=== PATIENT | female | born 1995 | race Caucasian/White ===

== ENCOUNTER 2024-07-10 21:04 | Emergency (ER) | payer OTHER, SELFPAY ==
[2024-07-10 21:06] VITALS: BP 122/78; PULSE 62; RESP 18; TEMP 36.6; O2SAT 98; BMI 23.3
--- NOTE | 2024-07-11 01:14 | PC.NURSE ---
Pt a&ox4, no signs of distress. Pt states I feel great Pts father who is a physician is at bedside Pt reports pet was bitten by a wild animal and pt touched bite area and feels like she touched the saliva of the possibly infected wild animal and then placed her fingers in her mouth Plan of care ongoing.
--- NOTE | 2024-07-11 01:47 | ED_ITS ---
HPI - General Adult General Chief complaint: General Medical Stated complaint: ?Rabies exposure Time Seen by Provider: 07/11/24 01:29 Source: patient, RN notes reviewed and old records reviewed Mode of arrival: ambulatory Limitations: no limitations History of Present Illness ED Provider: Gilberto HPI narrative: 20-year-old female presents for evaluation of a possible rabies exposure. Patient reports that her dog was attacked by a wild animal this morning. She reports that she witnessed the attack but could not identify the animal that attacked her dog The patient's dog was bit on the neck/chin area. The dog was brought to the [facility] who confirmed the dog was not fact bitten in the dog received rabies booster. The patient is concerned that while she was evaluating her dog she touch saliva from the wild animal and then touched her own face around her mouth. The patient also reports that she frequently bites her nails and cuticles in his concerned she may have been exposed to rabies Related Data Allergies Allergy/AdvReac Type Severity Reaction Status Date / Time No Known Allergies Allergy Verified 07/10/24 21:10 [No Known Allergies*] Review of Systems Review of Systems: Yes all other systems are reviewed and are negative PMFSH Social History Social History Smoked in Last 30 Days: No Use of substances other than those prescribed or required for medical reasons: No Advance Directives: No Advance Directives Information Provided: Yes Do you have a plan to hurt others: No Plan Physical Exam ED Vital Signs: Vital Signs - 24 hr 07/10/24 21:06 Temperature 97.8 F Pulse Rate 62 Respiratory Rate 18 Blood Pressure 122/78 Pulse Oximetry 98 Oxygen Delivery Method Room Air BMI result Body Mass Index 23.3 Const General: healthy appearing, comfortable, no acute distress, alert and awake Nutritional Appearance: well nourished Orientation/consciousness: patient oriented x3 HENMT Head: Yes normocephalic and Yes atraumatic Eyes Eyelids: Yes eyelids normal Conjunctivae: conjunctivae normal Sclerae: sclerae normal Corneas: corneas normal Pupils: Equal, round and reactive pupils present EOM: EOMs intact bilaterally Neck Neck: Yes full ROM Resp Effort & Inspection: normal respiratory effort, able to speak in complete sentences and not labored Skin General skin exam: elasticity normal Neuro General: patient oriented x3 Cranial nerves: Yes Equal, round and reactive pupils present and Yes Bilaterally intact EOM present Cognition (Neuro): normal cognition Extrem Other: Moving all extremities well without any obvious deformities Medical Decision Making Medical Decision Making MDM Narrative: 28-year-old female presents for evaluation of a possible rabies exposure. It is unclear what animal attacked her dog. Given that the patient herself was not actually bit in his an exceedingly low likelihood for rabies exposure. I discussed risks and benefits of rabies vaccination with the patient. She would like to be treated with a rabies vaccine series which was ultimately ordered. Differential Diagnosis Differential Diagnoses: The differential diagnosis associated with the presentation includes Rabies exposure And will bite Animal bite Discharge Plan Discharge Clinical Impression: Rabies exposure Patient Disposition: Home, Self-Care Instructions: Rabies Vaccine (By injection), Rabies Immune Globulin (By injection) Additional Instructions: Rabies follow up with the [facility]: Upon discharge from the ED today, you will be contacted by the Infusion Center to schedule your follow up Rabies vaccines. You will need a total of 3 more injections. If for some reason you do not receive a call, please call the Infusion Center directly at [phone]. Follow up with your primary care provider after completion of the vaccine to have a titer drawn to ensure the v accines effectiveness. Print Language: Estonian
--- NOTE | 2024-07-11 02:37 | PC.NURSE ---
Immune Globulin not in Pyxis or on any other unit. This RN called and spoke with continuous miner operator pharmacist Dyllan Per dyllan will bring med but will take about 45 mins Pt advised of wait time Plan of care ongoing.
--- NOTE | 2024-07-11 02:54 | PC.NURSE ---
House sup and charge notified and aware of med not avail in Pyxis Plan of care ongoing.
--- NOTE | 2024-07-11 03:08 | PC.NURSE ---
Pt adamant about receiving the rabies vax/immune globulin Plan of care ongoing.
[2024-07-11] MEDS: Rabies Vaccine (PCEC)/PF 1 ML VIAL IM (03:15)
[2024-07-11] MEDS: Rabies Immune Globulin/PF 900 UNIT/3 ML VIAL IM (03:16)
[2024-07-11] MEDS: Rabies Immune Globulin/PF 300 UNIT/ML VIAL IM (03:16)
--- NOTE | 2024-07-11 03:20 | PC.NURSE ---
Pt medicated per [facility] Plan of care ongoing.
[2024-07-11 03:31] VITALS: BP 129/80; PULSE 80; RESP 18; TEMP 36.7; O2SAT 99
[2024-07-11 03:32] VITALS: BP 129/80; PULSE 80; RESP 18; TEMP 36.7; O2SAT 99
== END 2024-07-11 03:34 | disposition home or self-care (01) ==
PROVIDERS: Emergency Provider Internal Medicine
DX: Z20.3 Contact with and (suspected) exposure to rabies (principal); Z23 Encounter for immunization
CPT/HCPCS: 90375; 90471; 90472; 90675; 96372; 99284

== ENCOUNTER 2024-07-25 10:00 | Outpatient (RCR) | payer OTHER, SELFPAY ==
[2024-07-14 14:18] VITALS: BP 130/77; PULSE 71; RESP 16; TEMP 36.7; O2SAT 99
[2024-07-14] MEDS: Rabies Vaccine (PCEC)/PF 1 ML VIAL IM (14:22)
[2024-07-18 10:01] VITALS: BP 118/74; PULSE 76; RESP 17; TEMP 36.1; O2SAT 98
[2024-07-18] MEDS: Rabies Vaccine (PCEC)/PF 1 ML VIAL IM (10:04)
[2024-07-25 09:58] VITALS: BP 120/79; PULSE 77; RESP 16; TEMP 37.1; O2SAT 100
[2024-07-25] MEDS: Rabies Vaccine (PCEC)/PF 1 ML VIAL IM (10:02)
== END 2024-07-25 11:00 | disposition home or self-care (01) ==
LOC: HO.INF 10:00
PROVIDERS: Visit Provider Registered Nurse Emergency
DX: Z20.3 Contact with and (suspected) exposure to rabies (principal)
CPT/HCPCS: 90471; 90675